=== PATIENT | female | born 1960 ===

== ENCOUNTER → 2025-04-03 | Outpatient (CLI) | payer MEDICARE, SELFPAY ==
--- NOTE | 2025-04-03 12:40 | XR_ITS ---
Examination: Bone densitometry Date and time of exam: April 03, 2025, 1302 hours INDICATIONS: Menopause age 49 levothyroxine 9 years Technique: Lumbar spine and hip total bone mineralization values of an calculated. Peak reference and age match control results have been displayed. Findings: Lumbar spine total bone mineralization is 0.704 gm/cm2. This is 3.1 standard deviations below peak reference. This is 1.3 standard deviations below age-matched controls. Hip total bone mineralization is 0.700 gm/cm2 This is 2.0 standard deviations below peak reference. This is 0.7 standard deviations below age-matched controls Impression: There is osteoporosis based on lumbar spine measurements. There is osteoporosis based on hip measurements Lumbar mineralization is decreased 7.7% compared with May 21, 2012 Hip mineralization is decreased 9.2% compared with May 21, 2012
== END | disposition home or self-care (01) ==
LOC: CDIM 12:35
DX: M85.88 Other specified disorders of bone density and structure, other site (principal)
CPT/HCPCS: 77080